=== PATIENT | male | born 1945 | race Hispanic/Latino ===

== ENCOUNTER 2017-01-11 10:07 | Outpatient (CLI) | payer MEDICARE ==
--- NOTE | 2017-01-11 10:49 | Mammography Report ---
Diagnostic mammogram: Patient with tender right nipple. Routine views demonstrates mild increased centrally positioned retroareolar fibroglandular tissue density compared to the left side. No evidence of a mass. The remainder of the breast that are generally fatty replaced and unremarkable bilaterally. CAD used. Impression: The findings are consistent with mild changes of gynecomastia of the right breast. Recommendation: Clinical followup. BI-RADS CATEGORY: 2 = Benign ACR BI-RADS MAMMOGRAPHIC CODES: 0 = Needs additional imaging evaluation; 1 = Negative; 2 = Benign; 3 = Probably benign; 4 = Suspicious; 5 = Malignant; 6 = Known biopsy-proven malignancy COMMENT: 1. Dense breast tissue, i.e., adenosis, fibrocystic changes, etc., may obscure an underlying neoplasm. 2. Approximately 10% of cancers are not detected with mammography. 3. A negative mammography report should not delay biopsy if a clinically suspicious mass is present.
== END 2017-01-11 10:08 | disposition home or self-care (01) ==
LOC: SPVWC 10:07
PROVIDERS: ATTEND Urology
DX: N64.4 Mastodynia (principal)
CPT/HCPCS: 77066; G0204